=== PATIENT | female | born 1950 | race Caucasian/White ===

== ENCOUNTER 2018-09-11 19:36 | Inpatient (IN) ==
[2018-09-11] MEDS ORDERED: ONDANSETRON 4 MG/2 ML VIAL IV PRN (19:55)
[2018-09-11] MEDS ORDERED: MAGNESIUM SULF RIDER 2 GM in PREMIX 1 EACH IV PRN (19:55)
[2018-09-11] MEDS ORDERED: diphenhydrAMINE CAP 25 MG CAPSULE PO PRN (19:55)
[2018-09-11] MEDS ORDERED: MAGNESIUM SULF RIDER 4 GM in PREMIX 1 EACH IV PRN (19:55)
[2018-09-11] MEDS ORDERED: SODIUM CHLORIDE 0.9% 1,000 ML IV SCH (20:00)
[2018-09-11] MEDS ORDERED: clonazePAM 0.5 MG TABLET PO PRN (20:12)
[2018-09-11] MEDS ORDERED: clonazePAM 0.5 MG TABLET PO ONE (20:12)
[2018-09-11 22:23] LABS: Basophils % 0.2 % (0.0-0.8); Eosinophils % 0.1 % (0.00-10.9); Hematocrit 43.4 VOL% (35.7-47.0); Hemoglobin 14.4 GM/DL (12.0-16.0); Immature Granulocytes % 0.5 %; Immature Granulocytes Absolute 0.07 #; Lymphocytes # 1.3 10*3/uL (1.4-4.0); Lymphocytes % 9.4 % (21.3-54.2); Mean Corpuscular HGB Conc 33.2 GM/DL (32-36); Mean Corpuscular Hemoglobin 29 PG (27-34); Mean Corpuscular Volume 86.5 FL (87-102); Mean Platelet Volume 11.7 FL (9.6-12.0); Monocytes # 0.8 10*3/uL (0.11-0.8); Monocytes % 5.3 % (1.7-12.7); Neutrophils % 84.5 % (38.7-73.9); Platelet Count 219 T/CUMM (130-400); Red Blood Count 5.02 MC/CUMM (3.8-5.5); Red Cell Distribution Width 13.1 % (9.3-17.3); White Blood Count 14.2 T/CUMM (4-12)
[2018-09-11 22:46] LABS: CKMB % 3.5 %
[2018-09-11 22:53] LABS: Albumin 3.5 G/DL (3.4-5.0); Bilirubin,Total 0.6 MG/DL (0.2-1.0); Calcium 8.3 MG/DL (8.5-10.1); Osmolality,Calculated 275.7 MOS/KG (273-304); Potassium 3.7 MMOL/L (3.5-5.1); Thyroid Stimulating Hormone 1.34 uIU/ml (0.358-3.74)
[2018-09-11 22:56] LABS: Troponin I 5.46 NG/ML (0.00-0.045)
[2018-09-11] MEDS: CARVEDILOL 3.125 MG TABLET PO SCH (23:18)
[2018-09-11] MEDS: ASPIRIN CHEW 81 MG TABLET PO SCH (23:20)
[2018-09-11] MEDS: amLODIPine 5 MG TABLET PO SCH (23:20)
[2018-09-11] MEDS: GABAPENTIN 100 MG CAPSULE PO SCH (23:24)
[2018-09-11] MEDS: SERTRALINE 25 MG TABLET PO SCH (23:24)
[2018-09-12] MEDS: CARVEDILOL 3.125 MG TABLET PO SCH ×4 (04:00→21:40)
[2018-09-12 05:01] LABS: Basophils % 0.2 % (0.0-0.8); Eosinophils % 0.1 % (0.00-10.9); Hematocrit 43.8 VOL% (35.7-47.0); Hemoglobin 14.1 GM/DL (12.0-16.0); Immature Granulocytes % 0.3 %; Immature Granulocytes Absolute 0.04 #; Lymphocytes # 1.9 10*3/uL (1.4-4.0); Lymphocytes % 16.1 % (21.3-54.2); Mean Corpuscular HGB Conc 32.2 GM/DL (32-36); Mean Corpuscular Hemoglobin 28 PG (27-34); Mean Corpuscular Volume 86.7 FL (87-102); Monocytes # 0.6 10*3/uL (0.11-0.8); Monocytes % 4.8 % (1.7-12.7); Neutrophils # 9.2 10*3/uL (1.4-7.4); Neutrophils % 78.5 % (38.7-73.9); Platelet Count 233 T/CUMM (130-400); Red Blood Count 5.05 MC/CUMM (3.8-5.5); Red Cell Distribution Width 13.2 % (9.3-17.3); White Blood Count 11.8 T/CUMM (4-12)
[2018-09-12 05:25] LABS: Albumin 3.2 G/DL (3.4-5.0); Bilirubin,Total 0.9 MG/DL (0.2-1.0); Calcium 8.1 MG/DL (8.5-10.1); Total Protein 6.5 G/DL (6.4-8.3)
[2018-09-12 05:27] LABS: Risk Ratio 3.59
[2018-09-12 05:28] LABS: CKMB % 4.8 %
[2018-09-12 05:31] LABS: Troponin I 5.9 NG/ML (0.00-0.045)
[2018-09-12] MEDS ORDERED: ENOXAPARIN 80 MG/0.8 ML SYRINGE SUBCUT ONE (07:00)
[2018-09-12] MEDS ORDERED: DIAZEPAM 5 MG TABLET ONE (09:10)
[2018-09-12] MEDS: ASPIRIN CHEW 81 MG TABLET PO SCH (09:11)
[2018-09-12] MEDS: GABAPENTIN 100 MG CAPSULE PO SCH ×3 (09:11→21:39)
[2018-09-12] MEDS: SERTRALINE 25 MG TABLET PO SCH (09:11)
[2018-09-12] MEDS: amLODIPine 5 MG TABLET PO SCH (09:12)
[2018-09-12] MEDS ORDERED: DIAZEPAM 5 MG TABLET PO ONE (09:15)
[2018-09-12] MEDS ORDERED: diphenhydrAMINE CAP 25 MG CAPSULE PO ONE (09:16)
[2018-09-12] MEDS: NITROGLYCERIN 2% OINT 1 INCH/GM PACK TOP SCH ×4 (09:18→23:54)
[2018-09-12 09:20] LABS: CKMB % 4.9 %
[2018-09-12 09:25] LABS: Troponin I 4.79 NG/ML (0.00-0.045)
[2018-09-12] MEDS ORDERED: MAGNESIUM SULF RIDER 2 GM in PREMIX 1 EACH IV PRN (09:26)
[2018-09-12] MEDS ORDERED: POTASSIUM CHLORIDE RIDER 10 MEQ in PREMIX 1 EACH IV PRN (09:26)
[2018-09-12] MEDS ORDERED: SODIUM CHLORIDE 0.45% 1,000 ML IV SCH (09:30)
[2018-09-12] MEDS ORDERED: LIDOCAINE 1% 20 ML VIAL ONE (09:33)
[2018-09-12] MEDS ORDERED: MIDAZOLAM 2 MG/2 ML VIAL ONE (09:34)
[2018-09-12] MEDS ORDERED: fentaNYL 100 MCG/2 ML VIAL ONE (09:34)
[2018-09-12 12:22] LABS: Troponin I 4.15 NG/ML (0.00-0.045)
[2018-09-12] MEDS ORDERED: ROSUVASTATIN 20 MG TABLET PO SCH (21:00)
[2018-09-12] MEDS: ACETAMINOPHEN 325 MG TABLET PO PRN (21:38)
[2018-09-12] MEDS: PANTOPRAZOLE 40 MG TABLET PO SCH (21:40)
[2018-09-13] MEDS: CARVEDILOL 3.125 MG TABLET PO SCH ×2 (03:25→08:54)
[2018-09-13 03:58] LABS: Basophils % 0.2 % (0.0-0.8); Eosinophils % 0.1 % (0.00-10.9); Hematocrit 41.8 VOL% (35.7-47.0); Hemoglobin 13.6 GM/DL (12.0-16.0); Immature Granulocytes % 0.5 %; Immature Granulocytes Absolute 0.06 #; Lymphocytes # 2.4 10*3/uL (1.4-4.0); Lymphocytes % 20.1 % (21.3-54.2); Mean Corpuscular HGB Conc 32.5 GM/DL (32-36); Mean Corpuscular Hemoglobin 28 PG (27-34); Mean Corpuscular Volume 86.7 FL (87-102); Mean Platelet Volume 12.3 FL (9.6-12.0); Monocytes # 0.9 10*3/uL (0.11-0.8); Monocytes % 7.7 % (1.7-12.7); Neutrophils # 8.5 10*3/uL (1.4-7.4); Neutrophils % 71.4 % (38.7-73.9); Platelet Count 216 T/CUMM (130-400); Red Blood Count 4.82 MC/CUMM (3.8-5.5); Red Cell Distribution Width 13.1 % (9.3-17.3); White Blood Count 11.9 T/CUMM (4-12)
[2018-09-13 04:27] LABS: Calcium 8.1 MG/DL (8.5-10.1); Osmolality,Calculated 263.5 MOS/KG (273-304); Potassium 3.7 MMOL/L (3.5-5.1)
[2018-09-13 04:28] LABS: Calcium 8.1 MG/DL (8.5-10.1); Osmolality,Calculated 265.4 MOS/KG (273-304); Potassium 3.7 MMOL/L (3.5-5.1)
[2018-09-13] MEDS: ACETAMINOPHEN 325 MG TABLET PO PRN (05:28)
[2018-09-13] MEDS: NITROGLYCERIN 2% OINT 1 INCH/GM PACK TOP SCH ×2 (06:06→10:58)
[2018-09-13 07:46] VITALS: BP 113/60
[2018-09-13] MEDS: ASPIRIN CHEW 81 MG TABLET PO SCH (08:53)
[2018-09-13] MEDS: PANTOPRAZOLE 40 MG TABLET PO SCH (08:54)
[2018-09-13] MEDS: amLODIPine 5 MG TABLET PO SCH (08:54)
[2018-09-13] MEDS: SERTRALINE 25 MG TABLET PO SCH (08:55)
[2018-09-13] MEDS: GABAPENTIN 100 MG CAPSULE PO SCH (08:55)
[2018-09-13] MEDS ORDERED: CLOPIDOGREL 75 MG TABLET PO SCH (11:01)
== END 2018-09-13 14:20 | disposition home or self-care (01) | DRG 282 ==
LOC: N.EDINP 19:36 → N.ED 19:36 → N.TELEN 20:49
PROVIDERS: ADMIT Internal Medicine Cardiovascular Disease; ATTEND Internal Medicine Cardiovascular Disease
PROC: CLCCHCL (ICD-10-PCS; 2018-09-12 09:45)